=== PATIENT | male | born 1965 | race Caucasian/White ===

== ENCOUNTER 2018-02-24 23:58 | Inpatient (IN) | payer OTHER ==
[~2018-02-24] VITALS: Ht 185.4 cm; Wt 104.3 kg
[2018-02-25] MEDS ORDERED: SODIUM CHLORIDE 0.9% 1,000 ML IV ONE (01:01)
[2018-02-25] MEDS ORDERED: ACETAMINOPHEN 325MG TABLET PO STA (01:01)
[2018-02-25 02:22] LABS: CHLORIDE 97 mEq/L (98-107)
[2018-02-25 02:23] LABS: HEMATOCRIT. 40.1 % (42.0-52.0); MEAN CORPUSCULAR HEMOGLOBIN 30.4 pg (28.0-32.0); MEAN CORPUSCULAR VOLUME 87.2 fL (80.0-94.0); MEAN PLATELET VOLUME 8.5 fl (7.4-10.4); PLATELET 162 x1000/uL (130-400); RED BLOOD CELL COUNT 4.59 mill/uL (4.7-6.1); RED CELL DISTRIBUTION WIDTH 13.8 % (11.6-14.6)
[2018-02-25 02:24] LABS: INR 1.2; PROTHROMBIN TIME 11.6 sec (9.1-11.1)
[2018-02-25] MEDS ORDERED: LEVOFLOXACIN 750MG PREMIX 150 ML IV SCH (04:30)
[2018-02-25 05:17] LABS: PLATELET ESTIMATE NORMAL
[2018-02-25] MEDS: SODIUM CHLORIDE 0.9% 1,000 ML IV SCH ×2 (06:41→20:01)
[2018-02-25] MEDS ORDERED: MAGNESIUM/ALUMINUM HYDROXIDE/SIMETHICONE 30ML UDC PO PRN (06:45)
[2018-02-25] MEDS ORDERED: DOCUSATE SODIUM 100MG CAPSULE PO PRN (06:45)
[2018-02-25] MEDS ORDERED: CLONIDINE 0.1MG TABLET PO PRN (06:45)
[2018-02-25] MEDS ORDERED: ONDANSETRON HCL 4MG/2ML INJ IV PRN (06:45)
[2018-02-25] MEDS ORDERED: GUAIFENESIN 200MG/10ML SUGAR FREE UDC PO PRN (06:45)
[2018-02-25] MEDS ORDERED: ACETAMINOPHEN 325MG TABLET PO PRN (06:45)
[2018-02-25] MEDS ORDERED: LOPERAMIDE HCL 2MG CAPSULE PO NR (14:45)
[2018-02-25] MEDS ORDERED: LOPERAMIDE HCL 2MG CAPSULE PO PRN (14:45)
[2018-02-25] MEDS ORDERED: DEXT 5%/0.45% NACL 1000ML 1,000 ML IV ONE (14:45)
[2018-02-25] MEDS: OSELTAMIVIR 75MG CAPSULE PO SCH ×2 (19:11→21:00)
[2018-02-25 22:43] VITALS: BP 144/83
[2018-02-26] VITALS: BP 144/83
[2018-02-26 04:00] VITALS: BP 112/69
[2018-02-26 06:08] LABS: CHLORIDE 104 mEq/L (98-107)
[2018-02-26 06:16] LABS: HEMATOCRIT. 36.7 % (42.0-52.0); HEMOGLOBIN. 12.8 g/dL (14.0-18.0); LYMPHOCYTES % 15.4 % (20.0-50.0); MEAN CORPUSCULAR HEMOGLOBIN 29.9 pg (28.0-32.0); MEAN CORPUSCULAR VOLUME 85.6 fL (80.0-94.0); MEAN PLATELET VOLUME 8.6 fl (7.4-10.4); NEUTROPHILS % 79.6 % (40.0-76.0); PLATELET 147 x1000/uL (130-400); RED BLOOD CELL COUNT 4.28 mill/uL (4.7-6.1); RED CELL DISTRIBUTION WIDTH 13.7 % (11.6-14.6)
[2018-02-26 06:23] LABS: CLARITY URINE CLEAR (CLEAR); COLOR URINE YELLOW (YELLOW); KETONES URINE NEGATIVE (NEGATIVE); LEUKOCYTE ESTERASE URINE NEGATIVE (NEGATIVE); NITRITE URINE NEGATIVE (NEGATIVE); OCCULT BLOOD URINE TRACE (NEGATIVE); PH URINE 6.5 (4.5-8.0); PROTEIN URINE NEGATIVE (NEGATIVE); SPECIFIC GRAVITY URINE 1.009 (1.005-1.030); UROBILINOGEN URINE 0.2 E.U./dL (0.2-1.0)
[2018-02-26 08:00] VITALS: BP 112/74
[2018-02-26] MEDS: OSELTAMIVIR 75MG CAPSULE PO SCH ×2 (08:43→20:21)
[2018-02-26] MEDS ORDERED: POTASSIUM CHLORIDE 20MEQ TABLET SR PO NR (08:45)
[2018-02-26] MEDS: SODIUM CHLORIDE 0.9% 1,000 ML IV SCH ×2 (11:38→22:41)
[2018-02-26 12:00] VITALS: BP 103/63
[2018-02-26 16:00] VITALS: BP 110/74
[2018-02-26 20:00] VITALS: BP 109/65
[2018-02-27] VITALS: BP 114/70
[2018-02-27 04:00] VITALS: BP 118/70
[2018-02-27 08:00] VITALS: BP 109/64
[2018-02-27 08:07] LABS: BASOPHILS % 0.1 % (0.0-2.0); HEMOGLOBIN. 12.7 g/dL (14.0-18.0); LYMPHOCYTES % 18.1 % (20.0-50.0); MEAN CORPUSCULAR HEMOGLOBIN 29.8 pg (28.0-32.0); MEAN CORPUSCULAR VOLUME 86.6 fL (80.0-94.0); MEAN PLATELET VOLUME 8.5 fl (7.4-10.4); NEUTROPHILS % 74.8 % (40.0-76.0); PLATELET 188 x1000/uL (130-400); RED BLOOD CELL COUNT 4.27 mill/uL (4.7-6.1); RED CELL DISTRIBUTION WIDTH 13.7 % (11.6-14.6)
[2018-02-27 09:24] LABS: CHLORIDE 108 mEq/L (98-107)
[2018-02-27] MEDS: OSELTAMIVIR 75MG CAPSULE PO SCH ×2 (09:34→21:10)
[2018-02-27] MEDS ORDERED: POTASSIUM CHLORIDE 20MEQ TABLET SR PO NR (10:00)
[2018-02-27 12:00] VITALS: BP 103/57
[2018-02-27] MEDS: SODIUM CHLORIDE 0.9% 1,000 ML IV SCH (13:00)
[2018-02-27] MEDS ORDERED: BENZONATATE 100MG CAPSULE PO PRN (14:15)
[2018-02-27 20:00] VITALS: BP 109/55
[2018-02-28] VITALS: BP 121/77
[2018-02-28] MEDS: SODIUM CHLORIDE 0.9% 1,000 ML IV SCH (01:21)
[2018-02-28 04:00] VITALS: BP 104/64
[2018-02-28 08:00] VITALS: BP 133/70
[2018-02-28] MEDS: OSELTAMIVIR 75MG CAPSULE PO SCH (09:13)
[2018-02-28 10:33] LABS: CHLORIDE 106 mEq/L (98-107)
[2018-02-28 11:25] VITALS: BP 133/70
[2018-02-28 12:00] VITALS: BP 115/69
== END 2018-02-28 14:53 | disposition home or self-care (01) | DRG 682 ==
LOC: ER 23:58 → 7WST 02-25 06:22 → EDBEDREQTM 02-25 06:23 → EDBEDREQSVC 02-25 06:23 → EDBEDREQ 02-25 06:23 → SUPCPDRO 02-25 06:40 → CANRESERV 02-25 08:26 → ENRESERV 02-25 08:26
PROVIDERS: ADMIT Hospitalist; ATTEND Hospitalist
DX: N17.9 Acute kidney failure, unspecified (principal); J96.00 Acute respiratory failure, unspecified whether with hypoxia or hypercapnia; E44.0 Moderate protein-calorie malnutrition; R65.10 Systemic inflammatory response syndrome (SIRS) of non-infectious origin without acute organ dysfunction; J10.1 Influenza due to other identified influenza virus with other respiratory manifestations; R19.7 Diarrhea, unspecified; E87.6 Hypokalemia; E86.0 Dehydration; R74.0 Nonspecific elevation of levels of transaminase and lactic acid dehydrogenase [LDH]; Z68.30 Body mass index [BMI] 30.0-30.9, adult
CPT/HCPCS: 36415; 71045; 83605; 83735; 84145; 87493; 87804; 93970; 96361; 96365; 96366; 99284; 99291; J1956; J7030